=== PATIENT | female | born 1965 | race Caucasian/White ===

== ENCOUNTER → 2017-02-23 15:37 | Outpatient (CLI) | payer BC ==
[2016-03-26 05:44] VITALS: BMI 24.3
[~2017-02-23 15:37] MED LIST: ESTRATEST 1.25-1 TAB PO; ULTRAM50 MG PO
== END | disposition home or self-care (01) ==
LOC: D.MRI 02-22 16:00
DX: M75.41 Impingement syndrome of right shoulder (principal)